=== PATIENT | female | born 1940 | race Hispanic/Latino ===

== ENCOUNTER → 2018-04-04 | Day surgery (SDC) | payer OTHER ==
[2018-04-01 12:04] LABS: BASOPHILS % 0.5 % (0.0-1.0); EOSINOPHILS # (AUTO) 0.1 (0.0-0.4); EOSINOPHILS % 1.8 % (0.0-6.0); HEMATOCRIT 32.3 % (34.2-44.1); HEMOGLOBIN 10.7 g/dL (12.0-16.0); LYMPHOCYTES # (AUTO) 1.9 (1.0-3.2); LYMPHOCYTES % 28.5 % (18.0-39.1); MEAN CORPUSCULAR HEMOGLOBIN 29.6 pg (28-32); MEAN CORPUSCULAR HGB CONC 33.1 g/dL (31-35); MEAN CORPUSCULAR VOLUME 89.5 fL (81-99); MONOCYTES # (AUTO) 0.5 (0.2-0.8); MONOCYTES % 6.9 % (4.4-11.3); NEUTROPHILS # (AUTO) 4.1 (2.1-6.9); PLATELET COUNT 177 x10e3/uL (140-360); RED BLOOD COUNT 3.61 x10e6/uL (3.6-5.1); RED CELL DISTRIBUTION WIDTH 13.3 % (11.7-14.4)
--- NOTE | 2018-04-01 12:33 | Diagnostic Imaging Report ---
EXAMINATION: PA and lateral views of the chest. COMPARISON: None CLINICAL HISTORY: Preoperative study for urological procedure DISCUSSION: Lungs are well-inflated. Right hemidiaphragmatic eventration. Biapical pleural-parenchymal scar right greater than left. Mild probable age-related prominence of the interstitial markings. No airspace consolidation, pleural effusion, or pneumothorax. Mild tortuosity of the thoracic aorta with otherwise normal heart size. No acute osseous abnormality. Surgical tati project over the anterior upper abdomen on the lateral radiograph. IMPRESSION: No acute cardiopulmonary abnormalities. Signed by: Dr. Chepe Alonso M.D. on 04/01/2018 12:30 PM
[~2018-04-04] MED LIST: CEFTRIAXONE SOD 1 GM VIAL ONE; DEXAMETHASONE SOD PHOS INJ 4 MG/ML VIAL ONE; FENTANYL CITRATE/PF 100MCG/2 ML INJ ONE; IOPAMIDOL 610MG/1ML 300 MG/ML VIAL IV ONE; LIDOCAINE HCL 2% LOCAL INJ 5 ML SDV VIAL INJ ONE; ONDANSETRON HCL INJ 2 MG/ML VIAL ONE; PROPOFOL IV EMULSION 10 MG/ML 20 ML VIAL ONE; SEVOFLURANE INHAL SOLN 250 ML PEN BTL ONE
--- OUTSIDE RECORDS SUMMARY | 2018-04-04 05:46 | XMS REPORT ---
Author Author [facility] Address Unknown Phone Unavailable Care Team Providers Care Atomic Physics Professor Name Role Phone IRMA MASON Unavailable Unavailable Problems This patient has no known problems. Allergies, Adverse Reactions, Alerts This patient has no known allergies or adverse reactions. Medications This patient has no known medications. Results Test Description Test Time Test Comments Text Results Atomic Results Result Comments CHEST 2 VIEWS 2018-04-01 12:27:00 [facility] [address], [place] [address] Patient Name: DOM DUTTON MR #: [id number] : 1940 Age/Sex: 77/F Req #: [id number] Adm Physician: Ordered by: IRMA MASNO MD Report #: [id number] Location: OR Room/Bed: Procedure: [id number] DX/CHEST 2 VIEWS Exam Date: 04/01/18 Exam Time: 1212 REPORT STATUS: Signed EXAMINATION: PA and lateral views of the chest. C OMPARISON: None CLINICAL HISTORY: Preoperative study for urological procedure DISCUSSION: Lungs are well-inflated. Right hemidiaphragmatic eventration. Biapical pleural-parenchymal scar right greater than left. Mild probable age-related prominence of the interstitial markings. No airspace consolidation, pleural effusion, or pneumothorax. Mild tortuosity of the thoracic aorta with otherwise normal heart size. No acute osseous abnormality. Surgical tati project over the anterior upper abdomen on the lateral radiograph. IMPRESSION: No acute cardiopulmonary abnormalities. Signed by: Dr. Deja Lu M.D. on 04/01/2018 12:30 PM Dictated By: DEJA LU MD 1230 Transcribed By: MARTHA on 04/01/18 1230 COPY TO: IRMA MASON MD
[2018-04-04 08:50] VITALS: BP 160/70
--- NOTE | 2018-04-06 02:11 | Operative Report ---
DATE OF PROCEDURE: April 04, 2018 PREOPERATIVE DIAGNOSES: 1. Multiple chronic urinary tract infections. 2. Clinical signs and symptoms of interstitial cystitis. POSTOPERATIVE DIAGNOSES: 1. Multiple chronic urinary tract infections. 2. Clinical signs and symptoms of interstitial cystitis. 3. Right ureteral stricture. PROCEDURES: 1. Cystourethroscopy with left ureteral catheterization and left retrograde pyelogram (entirely separate procedure for multiple chronic urinary tract infections). 2. Cystourethroscopy with hydrodistention (entirely separate procedure for clinical signs and symptoms of interstitial cystitis). 3. Right-sided ureteroscopy (entirely separate procedure for the diagnosis of right ureteral stricture). 4. Cystourethroscopy with insertion of a right indwelling ureteral stent (entirely separate procedure for diagnosis of right ureteral stricture). 5. Supervision of fluoroscopy. 6. Interpretation of retrograde pyelography. ANESTHESIA: General. ESTIMATED BLOOD LOSS: Minimal. COMPLICATIONS: None. DETAILS OF PROCEDURE: INDICATIONS FOR PROCEDURE: Ms. Camacho is a 77-year-old female with multiple chronic urinary tract infections. She and I had a long discussion about alternatives, risks, and benefits including doing nothing, cystoscopy, IVP, retrograde pyelogram, renal ultrasound. She voiced understanding of the options, the alternatives, the risks, and the benefits and she elected to proceed. PROCEDURE IN DETAIL: After informed consent was obtained, the patient was taken to the operative suite and she was placed supine on the operating table. She underwent general anesthesia by the anesthesia service. She was placed in the dorsal lithotomy position and sterilely prepped and draped in the standard fashion for cystoscopy. 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 A 21-Sudanese cystoscope was inserted per urethra. Normal urethra was noted. Panendoscopy of the bladder revealed no tumors, no stones. Both ureteral orifices were in their normal anatomical location and position were seen to efflux clear urine. A hydrodistention was performed which revealed a capacity of 800 mL. No glomerulations and no Hunner's ulcers. Bilateral retrograde pyelograms were performed. The left was normal. The right revealed distal narrowing. With extreme pressure, I could not get anything to advance past iliac vessels. At this time, a 5-Sudanese open-ended guidewire was inserted with a moderate degree of difficulty. Attempts were made to dilate the ureter. Ureteroscope was advanced to this level. Photographs again which were taken showing stricture. We managed to dilate this and placed a 6 x 24-Sudanese ureteral stent with a coil in the renal pelvis and a coil in the patient's bladder. Bladder was drained. The patient was awakened from anesthesia and transported to the recovery room in excellent condition. SUPERVISION OF FLUOROSCOPY AND INTERPRETATION OF RETROGRADE PYELOGRAPHY: I was present throughout the entire procedure and supervised fluoroscopy. There was no radiologist present at any time during this procedure. Attention was turned toward the left and right ureteral orifices, which were catheterized. A retrograde pyelogram was performed, the left was normal and the right revealed distal to mid ureteral stricture. Postoperative views revealed the right ureteral stent in adequate position. Job#: [id number] LUPE
== END | disposition home or self-care (01) ==
LOC: OR 05:43
PROVIDERS: ATTEND Urology
DX: N39.0 Urinary tract infection, site not specified (principal); N13.5 Crossing vessel and stricture of ureter without hydronephrosis; N81.3 Complete uterovaginal prolapse; I10 Essential (primary) hypertension; Z88.6 Allergy status to analgesic agent; Z01.810 Encounter for preprocedural cardiovascular examination; Z01.812 Encounter for preprocedural laboratory examination; Z01.818 Encounter for other preprocedural examination
CPT/HCPCS: 36415; 52332; 71046; 74420; 85025; 93005; C1874; J0696; J1100; J2001; J2405; J2704; Q9967

== ENCOUNTER → 2018-05-16 | Day surgery (SDC) | payer OTHER ==
[2018-05-14 13:29] LABS: BASOPHILS % 0.3 % (0.0-1.0); EOSINOPHILS # (AUTO) 0.2 (0.0-0.4); EOSINOPHILS % 2.2 % (0.0-6.0); HEMATOCRIT 31.8 % (34.2-44.1); HEMOGLOBIN 10.4 g/dL (12.0-16.0); LYMPHOCYTES # (AUTO) 2.3 (1.0-3.2); LYMPHOCYTES % 31.2 % (18.0-39.1); MEAN CORPUSCULAR HEMOGLOBIN 29.6 pg (28-32); MEAN CORPUSCULAR HGB CONC 32.7 g/dL (31-35); MEAN CORPUSCULAR VOLUME 90.6 fL (81-99); MONOCYTES # (AUTO) 0.6 (0.2-0.8); MONOCYTES % 7.7 % (4.4-11.3); NEUTROPHILS # (AUTO) 4.3 (2.1-6.9); NEUTROPHILS % 58.2 % (38.7-80.0); PLATELET COUNT 175 x10e3/uL (140-360); RED BLOOD COUNT 3.51 x10e6/uL (3.6-5.1)
[~2018-05-16] MED LIST changes: -CEFTRIAXONE SOD 1 GM VIAL ONE; +CEFTRIAXONE SOD 1 GM/NS 50 ML 50 ML IV ONE
--- NOTE | 2018-05-16 09:59 | Operative Report ---
DATE OF PROCEDURE: May 16, 2018 PREOPERATIVE DIAGNOSES 1. Indwelling right ureteral stent. 2. Right ureteral stricture. POSTOPERATIVE DIAGNOSES 1. Indwelling right ureteral stent. 2. Right ureteral stricture. PROCEDURES 1. Cystourethroscopy with removal of right indwelling stent (entirely separate procedure for ureteral stent complicated secondary to encrustation). 2. Right-sided ureteroscopy with dilation and evaluation of stricture (entirely separate procedure for ureteral stricture). 3. Supervision of fluoroscopy for the ureteroscopy portion. 4. Supervision of fluoroscopy for stent removal portion. 5. Interpretation of retrograde pyelography. ANESTHESIA: General. ESTIMATED BLOOD LOSS: Minimal. COMPLICATIONS: None. INDICATIONS: Ms. Camacho is a 77-year-old female who on routine cystoscopy and retrograde pyelogram was found to have a dense ureteral stricture, and now presents for evaluation. She voices the options, alternatives, risks, and benefits and elected to proceed. PROCEDURE IN DETAIL: After informed consent was obtained, the patient was preoperatively identified. Was placed in the dorsal lithotomy position and sterilely prepped and draped for cystoscopy. A 22.5-Tajik cystoscope was inserted revealing a normal urethra. Panendoscopy of the bladder revealed no tumors and no stones. Stent was encrusted and seen extruding from the right orifice. Guidewire was inserted. The stent was removed intact. It was noted to be encrusted. The ureteroscope was advanced to the level of the prior stricture. This area had been dilated. There was no abnormal appearing mucosa or area to biopsy. The ureteroscope was driven to the proximal ureter almost to the level of the kidneys. No other filling defects were seen on retrograde pyelogram with the scope. At this time, the scope and safety wire were removed. The bladder was drained. The patient was awakened from anesthesia and transported to the recovery room in excellent condition. SUPERVISION OF FLUOROSCOPY, INTERPRETATION OF RETROGRADE URETERAL PYELOGRAPHY: I was present throughout the entire procedure and I supervised the use of fluoroscopy, retrograde ureteroscopy and stent removal portions. There was no radiologist present. Attention was turned toward the right ureteral orifice where with the ureteroscope retrograde pyelogram was performed with the urethroscope revealing tortuosity. However, resolution of the prior stricture. Job#: [id number] DYANA
[2018-05-16 10:05] VITALS: BP 157/55
== END | disposition home or self-care (01) ==
LOC: OR 06:31
PROVIDERS: ATTEND Urology
DX: N13.5 Crossing vessel and stricture of ureter without hydronephrosis (principal); N20.0 Calculus of kidney; Z88.6 Allergy status to analgesic agent; Z46.6 Encounter for fitting and adjustment of urinary device; Z01.812 Encounter for preprocedural laboratory examination
CPT/HCPCS: 36415; 52351; 74420; 85025; J0696; J1100; J2001; J2405; J2704; Q9967

== ENCOUNTER 2020-11-05 13:38 | Inpatient (IN) | payer OTHER ==
[~2020-11-05] VITALS: Ht 165.1 cm; Wt 72.1 kg
[2020-11-05] MEDS ORDERED: SODIUM CHLORIDE 0.9% 1000ML 1,000 ML IV STA (13:58)
[2020-11-05 14:13] LABS: BASOPHILS % 0.1 % (0.0-1.0); EOSINOPHILS # (AUTO) 0.1 (0.0-0.4); EOSINOPHILS % 0.6 % (0.0-6.0); LYMPHOCYTES # (AUTO) 1.4 (1.0-3.2); LYMPHOCYTES % 15.3 % (18.0-39.1); MEAN CORPUSCULAR HEMOGLOBIN 25.2 pg (28-32); MEAN CORPUSCULAR HGB CONC 29.9 g/dL (31-35); MEAN CORPUSCULAR VOLUME 84.2 fL (81-99); MONOCYTES # (AUTO) 0.5 (0.2-0.8); MONOCYTES % 5.9 % (4.4-11.3); NEUTROPHILS # (AUTO) 6.9 (2.1-6.9); NEUTROPHILS % 77.4 % (38.7-80.0); PLATELET COUNT 230 x10e3/uL (140-360); RED BLOOD COUNT 2.22 x10e6/uL (3.6-5.1); RED CELL DISTRIBUTION WIDTH 14.6 % (11.7-14.4)
[2020-11-05 14:22] LABS: HEMATOCRIT 18.7 % (34.2-44.1); HEMOGLOBIN 5.6 g/dL (12.0-16.0)
[2020-11-05 14:35] LABS: CLARITY,URINE HAZY (CLEAR); COLOR,URINE YELLOW (YELLOW); LEUKOCYTE ESTERASE ,URINE SMALL (NEGATIVE); NITRITE,URINE POSITIVE (NEGATIVE)
[2020-11-05 14:36] LABS: KETONES,URINE NEGATIVE (NEGATIVE); PROTEIN,URINE DIPSTICK NEGATIVE (NEGATIVE); URINE UROBILINOGEN 0.2 mg/dL (0.2 - 1)
[2020-11-05 14:37] LABS: AMORPHOUS SEDIMENT,URINE FEW (FEW); BACTERIA,URINE MANY /HPF; EPITHELIAL CELLS,URINE FEW /LPF; MUCUS,URINE MODERATE (RARE); WBC,URINE (MAN) 21-50 /HPF (0-5)
[2020-11-05 14:47] LABS: ALANINE AMINOTRANSFERASE 6 IU/L (0-55); ALBUMIN 3.3 g/dL (3.5-5.0); ALBUMIN/GLOBULIN RATIO 0.9 (0.8-2.0); ALKALINE PHOSPHATASE 93 IU/L (40-150); ANION GAP 11.4 mmol/L (8-16); BLOOD UREA NITROGEN 32 mg/dL (7-26); BUN/CREATININE RATIO 19 (6-25); CALCIUM 8.2 mg/dL (8.4-10.2); CARBON DIOXIDE 20 mmol/L (22-29); CHLORIDE 113 mmol/L (98-107); CREATINE KINASE 91 IU/L (29-168); CREATININE, SERUM 1.69 mg/dL (0.57-1.11); EST GLOMERULAR FILTRATION RATE 29 ML/MIN (60-); GLUCOSE 130 mg/dL (74-118); MAGNESIUM 2.4 MG/DL (1.3-2.1); POTASSIUM 4.4 mmol/L (3.5-5.1); SODIUM 140 mmol/L (136-145)
[2020-11-05 16:06] LABS: ANISOCYTOSIS SLIGHT; HYPOCHROMASIA SLIGHT; PLATELET ESTIMATE ADEQUATE; PLATELET MORPHOLOGY COMMENT NORMAL
[2020-11-05] MEDS ORDERED: ONDANSETRON HCL INJ 2MG/ML 2ML 2 MG/ML VIAL IV PRN (16:30)
[2020-11-05] MEDS: PIPERACILLIN/TAZOBACTAM 2.25 GM in SODIUM CHLORIDE 0.9% 50ML 50 ML IV SCH (17:20)
[2020-11-05] MEDS: SODIUM CHLORIDE 0.9% 1000ML 1,000 ML IV SCH (17:20)
[2020-11-05 18:20] VITALS: BP 136/63
[2020-11-05 20:00] VITALS: BP 109/51
[2020-11-05 20:20] VITALS: BP 109/51
[2020-11-05 22:03] VITALS: BP 109/51
[2020-11-05] MEDS ORDERED: SODIUM CHLORIDE 0.9% 250ML 250 ML ONE (22:47)
[2020-11-05 22:57] LABS: CREATINE KINASE 83 IU/L (29-168)
[2020-11-06] VITALS (8 sets, daily range): BP systolic 117–145; BP diastolic 35–69
[2020-11-06] MEDS: PIPERACILLIN/TAZOBACTAM 2.25 GM in SODIUM CHLORIDE 0.9% 50ML 50 ML IV SCH ×5 (01:22→23:30)
[2020-11-06] MEDS: SODIUM CHLORIDE 0.9% 1000ML 1,000 ML IV SCH ×2 (02:30→10:17)
[2020-11-06] MEDS ORDERED: SODIUM CHLORIDE 0.9% 250ML 250 ML ONE (02:31)
[2020-11-06 06:22] LABS: BASOPHILS % 0.4 % (0.0-1.0); EOSINOPHILS # (AUTO) 0.1 (0.0-0.4); EOSINOPHILS % 0.8 % (0.0-6.0); HEMATOCRIT 26.8 % (34.2-44.1); HEMOGLOBIN 8.1 g/dL (12.0-16.0); LYMPHOCYTES # (AUTO) 2.1 (1.0-3.2); LYMPHOCYTES % 27.9 % (18.0-39.1); MEAN CORPUSCULAR HEMOGLOBIN 26.9 pg (28-32); MEAN CORPUSCULAR HGB CONC 30.2 g/dL (31-35); MONOCYTES # (AUTO) 0.5 (0.2-0.8); MONOCYTES % 6.3 % (4.4-11.3); NEUTROPHILS # (AUTO) 4.9 (2.1-6.9); NEUTROPHILS % 64.3 % (38.7-80.0); PLATELET COUNT 219 x10e3/uL (140-360); RED BLOOD COUNT 3.01 x10e6/uL (3.6-5.1); RED CELL DISTRIBUTION WIDTH 15.3 % (11.7-14.4)
[2020-11-06 06:43] LABS: ALBUMIN 3.1 g/dL (3.5-5.0); ALBUMIN/GLOBULIN RATIO 0.8 (0.8-2.0); ANION GAP 11.7 mmol/L (8-16); CALCIUM 8.1 mg/dL (8.4-10.2); CHOL/HDL RATIO 2.1 (3.0-3.6); CREATININE, SERUM 1.39 mg/dL (0.57-1.11); POTASSIUM 4.7 mmol/L (3.5-5.1)
[2020-11-06 06:59] LABS: CREATINE KINASE 110 IU/L (29-168)
[2020-11-06 11:13] LABS: THYROID STIMULATING HORMONE 3.732 uIU/mL (0.350-4.940)
[2020-11-06] MEDS: CEFTRIAXONE 1 GM in SODIUM CHLORIDE 0.9% 50ML 50 ML IV SCH (11:49)
[2020-11-06] MEDS ORDERED: LOSARTAN POTAS100 MG PO (13:40)
[2020-11-06] MEDS ORDERED: ASPIRIN81 MG PO (13:40)
[2020-11-06] MEDS ORDERED: ATORVASTATIN CA10 MG PO (13:40)
[2020-11-06] MEDS ORDERED: CYANOCOBALAMIN INJ 1,000 MCG/ML VIAL IM ONE (23:15)
[2020-11-06] MEDS ORDERED: BISACODYL 5 MG TAB EC PO ONE (23:30)
[2020-11-07] VITALS (8 sets, daily range): BP systolic 138–179; BP diastolic 55–74
[2020-11-07] MEDS: SODIUM CHLORIDE 0.9% 1000ML 1,000 ML IV SCH
[2020-11-07] MEDS: PIPERACILLIN/TAZOBACTAM 2.25 GM in SODIUM CHLORIDE 0.9% 50ML 50 ML IV SCH (04:48)
[2020-11-07 05:51] LABS: BASOPHILS % 0.4 % (0.0-1.0); EOSINOPHILS # (AUTO) 0.1 (0.0-0.4); HEMATOCRIT 24.4 % (34.2-44.1); HEMOGLOBIN 7.6 g/dL (12.0-16.0); LYMPHOCYTES # (AUTO) 1.6 (1.0-3.2); LYMPHOCYTES % 24.2 % (18.0-39.1); MEAN CORPUSCULAR HEMOGLOBIN 26.4 pg (28-32); MEAN CORPUSCULAR HGB CONC 31.1 g/dL (31-35); MONOCYTES # (AUTO) 0.5 (0.2-0.8); MONOCYTES % 7.5 % (4.4-11.3); NEUTROPHILS # (AUTO) 4.5 (2.1-6.9); NEUTROPHILS % 66.6 % (38.7-80.0); PLATELET COUNT 196 x10e3/uL (140-360); RED BLOOD COUNT 2.88 x10e6/uL (3.6-5.1); RED CELL DISTRIBUTION WIDTH 14.9 % (11.7-14.4)
[2020-11-07 05:55] LABS: MEAN CORPUSCULAR VOLUME 84.7 fL (81-99)
[2020-11-07 06:12] LABS: ALBUMIN/GLOBULIN RATIO 0.8 (0.8-2.0); ANION GAP 13.8 mmol/L (8-16); CREATININE, SERUM 1.34 mg/dL (0.57-1.11); POTASSIUM 3.8 mmol/L (3.5-5.1)
[2020-11-07] MEDS: CEFTRIAXONE 1 GM in SODIUM CHLORIDE 0.9% 50ML 50 ML IV SCH (09:09)
[2020-11-07] MEDS: CYANOCOBALAMIN INJ 1,000 MCG/ML VIAL IM SCH (09:09)
[2020-11-07] MEDS: IRON SUCROSE 100 MG in SODIUM CHLORIDE 0.9% 100 ML 100 ML IV SCH (09:52)
[2020-11-07] MEDS ORDERED: PEG (High)/E-LYTE SOLN 4,000 ML BTL PO ONE (12:00)
[2020-11-07] MEDS ORDERED: BISACODYL 5 MG TAB EC PO ONE ×3 (21:30→22:00)
[2020-11-08] VITALS (8 sets, daily range): BP systolic 129–174; BP diastolic 47–65
[2020-11-08 05:24] LABS: BASOPHILS % 0.5 % (0.0-1.0); EOSINOPHILS # (AUTO) 0.1 (0.0-0.4); EOSINOPHILS % 1.2 % (0.0-6.0); HEMATOCRIT 24.3 % (34.2-44.1); HEMOGLOBIN 7.6 g/dL (12.0-16.0); LYMPHOCYTES # (AUTO) 1.8 (1.0-3.2); LYMPHOCYTES % 29.9 % (18.0-39.1); MEAN CORPUSCULAR HEMOGLOBIN 26.6 pg (28-32); MEAN CORPUSCULAR HGB CONC 31.3 g/dL (31-35); MONOCYTES # (AUTO) 0.5 (0.2-0.8); MONOCYTES % 7.6 % (4.4-11.3); NEUTROPHILS # (AUTO) 3.6 (2.1-6.9); NEUTROPHILS % 60.3 % (38.7-80.0); PLATELET COUNT 189 x10e3/uL (140-360); RED BLOOD COUNT 2.86 x10e6/uL (3.6-5.1); RED CELL DISTRIBUTION WIDTH 14.6 % (11.7-14.4)
[2020-11-08 06:00] LABS: ANION GAP 13.6 mmol/L (8-16); CALCIUM 8.5 mg/dL (8.4-10.2); CREATININE, SERUM 1.18 mg/dL (0.57-1.11); POTASSIUM 3.6 mmol/L (3.5-5.1)
[2020-11-08] MEDS: CEFTRIAXONE 1 GM in SODIUM CHLORIDE 0.9% 50ML 50 ML IV SCH (08:51)
[2020-11-08] MEDS: CYANOCOBALAMIN INJ 1,000 MCG/ML VIAL IM SCH (08:51)
[2020-11-08] MEDS: IRON SUCROSE 100 MG in SODIUM CHLORIDE 0.9% 100 ML 100 ML IV SCH (09:00)
[2020-11-08] MEDS ORDERED: FENTANYL CITRATE/PF 100MCG/2 ML INJ ONE (16:23)
[2020-11-08] MEDS ORDERED: CITRATE OF MAGNESIA 300ML BOTTLE PO ONE (22:00)
[2020-11-09] VITALS (7 sets, daily range): BP systolic 112–152; BP diastolic 41–84
[2020-11-09] MEDS ORDERED: CITRATE OF MAGNESIA 300ML BOTTLE PO ONE ×2 (04:38→05:00)
[2020-11-09] MEDS: CEFTRIAXONE 1 GM in SODIUM CHLORIDE 0.9% 50ML 50 ML IV SCH (09:05)
[2020-11-09] MEDS: CYANOCOBALAMIN INJ 1,000 MCG/ML VIAL IM SCH (09:05)
[2020-11-09] MEDS: IRON SUCROSE 100 MG in SODIUM CHLORIDE 0.9% 100 ML 100 ML IV SCH (09:45)
[2020-11-09] MEDS ORDERED: HYOSCYAMINE SULFATE 0.5 MG/ML INJ ONE (13:30)
[2020-11-09] MEDS ORDERED: GLUCAGON FOR INJ 1 MG VIAL ONE (13:30)
[2020-11-09] MEDS ORDERED: LIDOCAINE HCL 2% LOCAL INJ 5 ML SDV VIAL INJ ONE (13:30)
[2020-11-09] MEDS ORDERED: PROPOFOL IV EMULSION 10 MG/ML 20 ML VIAL ONE (13:30)
[2020-11-09] MEDS ORDERED: MIDAZOLAM HCL 2 MG/2 ML VIAL ONE (13:43)
[2020-11-09] MEDS ORDERED: FENTANYL CITRATE/PF 100MCG/2 ML INJ ONE (13:43)
[2020-11-10 00:29] VITALS: BP 105/30
[2020-11-10 05:03] VITALS: BP 112/50
[2020-11-10 08:00] VITALS: BP 132/48
[2020-11-10] MEDS: CYANOCOBALAMIN INJ 1,000 MCG/ML VIAL IM SCH (09:00)
[2020-11-10] MEDS: CEFTRIAXONE 1 GM in SODIUM CHLORIDE 0.9% 50ML 50 ML IV SCH (09:01)
[2020-11-10] MEDS: IRON SUCROSE 100 MG in SODIUM CHLORIDE 0.9% 100 ML 100 ML IV SCH (09:02)
[2020-11-10 10:56] LABS: BASOPHILS % 0.3 % (0.0-1.0); EOSINOPHILS # (AUTO) 0.1 (0.0-0.4); EOSINOPHILS % 1.3 % (0.0-6.0); HEMOGLOBIN 7.7 g/dL (12.0-16.0); LYMPHOCYTES # (AUTO) 1.5 (1.0-3.2); LYMPHOCYTES % 24.2 % (18.0-39.1); MEAN CORPUSCULAR HEMOGLOBIN 26.3 pg (28-32); MEAN CORPUSCULAR HGB CONC 30.8 g/dL (31-35); MEAN CORPUSCULAR VOLUME 85.3 fL (81-99); MONOCYTES # (AUTO) 0.5 (0.2-0.8); NEUTROPHILS # (AUTO) 3.9 (2.1-6.9); NEUTROPHILS % 64.9 % (38.7-80.0); PLATELET COUNT 189 x10e3/uL (140-360); RED BLOOD COUNT 2.93 x10e6/uL (3.6-5.1); RED CELL DISTRIBUTION WIDTH 15.4 % (11.7-14.4)
[2020-11-10 12:00] VITALS: BP 152/56
[2020-11-10] MEDS ORDERED: HEMOCYTE PLUS1 EACH PO (12:39)
[2020-11-10] MEDS ORDERED: CARAFATE1 GM/10 ML PO (12:40)
[2020-11-10] MEDS ORDERED: PANTOPRAZOLE SO40 MG PO (12:40)
[2020-11-10] MEDS ORDERED: KEFLEX750 MG PO (12:41)
[2020-11-10] MEDS ORDERED: COLACE100 MG PO (12:41)
[2020-11-10] MEDS ORDERED: ONDANSETRON HCL 4 MG ORAL DISINTEGRATING TAB PO PRN (13:00)
== END 2020-11-10 13:14 | disposition home or self-care (01) | DRG 377 ==
LOC: ER 13:50 → ERHOLD 16:44 → MED/SURG3 18:08
PROVIDERS: ADMIT Internal Medicine; ATTEND Internal Medicine
PROC: 30233N1 Transfusion of Nonautologous Red Blood Cells into Peripheral Vein, Percutaneous Approach (ICD-10-PCS; principal; 2020-11-05)
PROC: 0D5H8ZZ Destruction of Cecum, Via Natural or Artificial Opening Endoscopic (ICD-10-PCS; 2020-11-09)
PROC: 0DB98ZX Excision of Duodenum, Via Natural or Artificial Opening Endoscopic, Diagnostic (ICD-10-PCS; 2020-11-09 12:00)
PROC: 0DB68ZX Excision of Stomach, Via Natural or Artificial Opening Endoscopic, Diagnostic (ICD-10-PCS; 2020-11-09 12:00)
PROC: 0DBH8ZX Excision of Cecum, Via Natural or Artificial Opening Endoscopic, Diagnostic (ICD-10-PCS; 2020-11-09 12:00)
PROC: 0DBN8ZX Excision of Sigmoid Colon, Via Natural or Artificial Opening Endoscopic, Diagnostic (ICD-10-PCS; 2020-11-09 12:00)
DX: K55.21 Angiodysplasia of colon with hemorrhage (principal); K20.91 Esophagitis, unspecified with bleeding; N39.0 Urinary tract infection, site not specified; D64.9 Anemia, unspecified; R55 Syncope and collapse; N28.9 Disorder of kidney and ureter, unspecified; K44.9 Diaphragmatic hernia without obstruction or gangrene; K63.5 Polyp of colon; D50.9 Iron deficiency anemia, unspecified; D51.9 Vitamin B12 deficiency anemia, unspecified; I10 Essential (primary) hypertension; E78.5 Hyperlipidemia, unspecified; Z88.5 Allergy status to narcotic agent; Z88.8 Allergy status to other drugs, medicaments and biological substances; K29.71 Gastritis, unspecified, with bleeding
CPT/HCPCS: 36415; 43239; 45378; 45380; 45385; 45388; 70450; 71045; 72125; 80048; 80053; 80061; 81001; 82270; 82550; 82553; 82607; 82746; 82948; 83540; 83735; 83880; 84443; 84466; 84484; 85025; 86850; 86900; 86920; 87086; 87186; 88305; 88312; 88331; 93005; 96361; 99284; J0696; J1610; J1756; J1980; J2001; J2250; J2543; J3010; J3420; J7030; J7050; P9016

== ENCOUNTER 2022-10-18 11:17 | Inpatient (IN) | payer MEDICARE, OTHER ==
[~2022-10-18] VITALS: Ht 165.1 cm; Wt 72.1 kg
[2022-10-18] VITALS (7 sets, daily range): BP systolic 122–188; BP diastolic 42–77; PULSE 69–92; RESP 17–19; TEMP 97–98.4; O2SAT 95–100
[~2022-10-18 11:17] MED LIST changes: +ASPIRIN81 MG PO; +ATORVASTATIN CA10 MG PO; +CARAFATE1 GM/10 ML PO; -CEFTRIAXONE SOD 1 GM/NS 50 ML 50 ML IV ONE; +COLACE100 MG PO; -DEXAMETHASONE SOD PHOS INJ 4 MG/ML VIAL ONE; -FENTANYL CITRATE/PF 100MCG/2 ML INJ ONE; +HEMOCYTE PLUS1 EACH PO; -IOPAMIDOL 610MG/1ML 300 MG/ML VIAL IV ONE; +KEFLEX750 MG PO; -LIDOCAINE HCL 2% LOCAL INJ 5 ML SDV VIAL INJ ONE; +LOSARTAN POTAS100 MG PO; -ONDANSETRON HCL INJ 2 MG/ML VIAL ONE; +PANTOPRAZOLE SO40 MG PO; -PROPOFOL IV EMULSION 10 MG/ML 20 ML VIAL ONE; -SEVOFLURANE INHAL SOLN 250 ML PEN BTL ONE
[2022-10-18 12:07] LABS: BASOPHILS % 0.2 % (0.0-1.0); EOSINOPHILS # (AUTO) 0.1 (0.0-0.4); EOSINOPHILS % 1.6 % (0.0-6.0); HEMATOCRIT 23.4 % (34.2-44.1); LYMPHOCYTES # (AUTO) 1.1 (1.0-3.2); LYMPHOCYTES % 25.5 % (18.0-39.1); MEAN CORPUSCULAR HEMOGLOBIN 24.4 pg (28-32); MEAN CORPUSCULAR HGB CONC 29.9 g/dL (31-35); MEAN CORPUSCULAR VOLUME 81.5 fL (81-99); MONOCYTES # (AUTO) 0.4 (0.2-0.8); MONOCYTES % 8.1 % (4.4-11.3); NEUTROPHILS # (AUTO) 2.9 (2.1-6.9); NEUTROPHILS % 64.4 % (38.7-80.0); PLATELET COUNT 211 x10e3/uL (140-360); RED BLOOD COUNT 2.87 x10e6/uL (3.6-5.1); RED CELL DISTRIBUTION WIDTH 18.6 % (11.7-14.4)
[2022-10-18 12:22] LABS: INR 1.07; PARTIAL THROMBOPLASTIN TIME 26.9 seconds (23.8-35.5); PROTHROMBIN TIME 14.4 seconds (11.9-14.5)
[2022-10-18] MEDS ORDERED: SODIUM CHLORIDE 0.9% 250ML 250 ML IV ONE (12:45)
[2022-10-18 12:51] LABS: ALBUMIN 3.5 g/dL (3.5-5.0); ANION GAP 12.2 mmol/L (8-16); CALCIUM 8.4 mg/dL (8.4-10.2); CREATININE, SERUM 1.68 mg/dL (0.57-1.11); POTASSIUM 4.2 mmol/L (3.5-5.1)
[2022-10-18] MEDS: SODIUM CHLORIDE 0.9% 1000ML 1,000 ML IV SCH (15:05)
[2022-10-18] MEDS ORDERED: FOLIC ACID0.4 MG PO (16:39)
[2022-10-18] MEDS ORDERED: OMEPRAZOLE40 MG PO (16:39)
[2022-10-18] MEDS: HYDRALAZINE HCL 20 MG/ML VIAL IV PRN ×2 (17:41→19:53)
[2022-10-18] MEDS: ATORVASTATIN 10 MG TAB PO SCH (19:40)
[2022-10-18] MEDS ORDERED: SODIUM CHLORIDE 0.9% 250ML 250 ML ONE (22:10)
[2022-10-19] MEDS: SODIUM CHLORIDE 0.9% 1000ML 1,000 ML IV SCH ×2 (02:05→03:32)
[2022-10-19 04:00] VITALS: BP 138/68; PULSE 80; RESP 18; TEMP 98.1; O2SAT 100
[2022-10-19 05:40] LABS: BASOPHILS % 0.4 % (0.0-1.0); EOSINOPHILS # (AUTO) 0.1 (0.0-0.4); EOSINOPHILS % 1.6 % (0.0-6.0); HEMATOCRIT 31.5 % (34.2-44.1); HEMOGLOBIN 9.7 g/dL (12.0-16.0); LYMPHOCYTES # (AUTO) 1.1 (1.0-3.2); LYMPHOCYTES % 21.9 % (18.0-39.1); MEAN CORPUSCULAR HEMOGLOBIN 25.4 pg (28-32); MEAN CORPUSCULAR HGB CONC 30.8 g/dL (31-35); MEAN CORPUSCULAR VOLUME 82.5 fL (81-99); MONOCYTES # (AUTO) 0.5 (0.2-0.8); MONOCYTES % 8.9 % (4.4-11.3); NEUTROPHILS # (AUTO) 3.4 (2.1-6.9); NEUTROPHILS % 66.8 % (38.7-80.0); PLATELET COUNT 177 x10e3/uL (140-360); RED BLOOD COUNT 3.82 x10e6/uL (3.6-5.1); RED CELL DISTRIBUTION WIDTH 17.7 % (11.7-14.4)
[2022-10-19 06:21] LABS: ALBUMIN 3.2 g/dL (3.5-5.0); CALCIUM 8.2 mg/dL (8.4-10.2); CREATININE, SERUM 1.31 mg/dL (0.57-1.11)
[2022-10-19 07:59] VITALS: BP 179/62; PULSE 66; RESP 17; TEMP 98.5; O2SAT 98
[2022-10-19 08:54] VITALS: BP 179/62; PULSE 66; RESP 17; TEMP 98.5; O2SAT 98
[2022-10-19] MEDS ORDERED: PANTOPRAZOLE SOD 40 MG TABEC PO SCH (09:00)
[2022-10-19] MEDS ORDERED: FOLIC ACID 0.4 MG PO SCH (09:00)
[2022-10-19] MEDS ORDERED: ASPIRIN 81 MG CHEW TAB PO SCH (09:00)
[2022-10-19] MEDS ORDERED: LOSARTAN POTASSIUM 100 MG TAB PO SCH (09:00)
[2022-10-19] MEDS ORDERED: HYDRALAZINE HCL 20 MG/ML VIAL IV PRN (09:45)
[2022-10-19] MEDS ORDERED: AMLODIPINE BESYLATE 10 MG TAB PO ONE (10:30)
[2022-10-19] MEDS ORDERED: IOPAMIDOL 370 MG/ML 100 ML INFUS..BTL INJ ONE (10:32)
[2022-10-19 11:05] LABS: THYROID STIMULATING HORMONE 1.85 uIU/mL (0.350-4.940)
[2022-10-19] MEDS: SODIUM BICARBONATE 8.4% 50 ML in SODIUM CHLORIDE 0.45% 1,000 ML IV SCH ×2 (11:16→20:41)
[2022-10-19] MEDS: IRON SUCROSE 100 MG in SODIUM CHLORIDE 0.9% 100 ML IV SCH (11:16)
[2022-10-19 15:43] VITALS: BP 135/56; PULSE 59; RESP 18; TEMP 98.2; O2SAT 98
[2022-10-19 20:23] VITALS: BP 136/61; PULSE 70; RESP 17; TEMP 98.2; O2SAT 96
[2022-10-19] MEDS: ATORVASTATIN 10 MG TAB PO SCH (20:35)
[2022-10-19] MEDS ORDERED: CYANOCOBALAMIN INJ 1,000 MCG/ML VIAL IM ONE (22:45)
[2022-10-19 23:29] VITALS: BP 136/61; PULSE 70; RESP 17; TEMP 98.2; O2SAT 96
[2022-10-20] VITALS (7 sets, daily range): BP systolic 104–161; BP diastolic 51–60; PULSE 62–76; RESP 18–20; TEMP 97.8–98.7; O2SAT 97–100
[2022-10-20 07:23] LABS: BASOPHILS % 0.4 % (0.0-1.0); EOSINOPHILS # (AUTO) 0.1 (0.0-0.4); EOSINOPHILS % 2.3 % (0.0-6.0); HEMATOCRIT 32.5 % (34.2-44.1); HEMOGLOBIN 10.2 g/dL (12.0-16.0); LYMPHOCYTES # (AUTO) 1.2 (1.0-3.2); LYMPHOCYTES % 25.4 % (18.0-39.1); MEAN CORPUSCULAR HEMOGLOBIN 25.2 pg (28-32); MEAN CORPUSCULAR HGB CONC 31.4 g/dL (31-35); MEAN CORPUSCULAR VOLUME 80.2 fL (81-99); MONOCYTES # (AUTO) 0.5 (0.2-0.8); MONOCYTES % 9.5 % (4.4-11.3); NEUTROPHILS % 62.2 % (38.7-80.0); PLATELET COUNT 179 x10e3/uL (140-360); RED BLOOD COUNT 4.05 x10e6/uL (3.6-5.1)
[2022-10-20 07:40] LABS: ANION GAP 12.3 mmol/L (8-16); CALCIUM 8.4 mg/dL (8.4-10.2); CREATININE, SERUM 1.38 mg/dL (0.57-1.11); POTASSIUM 4.3 mmol/L (3.5-5.1)
[2022-10-20] MEDS: SODIUM BICARBONATE 8.4% 50 ML in SODIUM CHLORIDE 0.45% 1,000 ML IV SCH ×2 (08:41→20:33)
[2022-10-20] MEDS: ACETAMINOPHEN 325 MG TAB PO SCH (09:00)
[2022-10-20] MEDS ORDERED: CYANOCOBALAMIN INJ 1,000 MCG/ML VIAL IM SCH ×2 (09:00→22:00)
[2022-10-20] MEDS: AMLODIPINE BESYLATE 10 MG TAB PO SCH (09:00)
[2022-10-20] MEDS: IRON SUCROSE 100 MG in SODIUM CHLORIDE 0.9% 100 ML IV SCH (12:04)
[2022-10-20] MEDS: ATORVASTATIN 10 MG TAB PO SCH (20:33)
[2022-10-21 00:05] VITALS: BP 149/62; PULSE 71; RESP 18; TEMP 98.6; O2SAT 100
[2022-10-21] MEDS: SODIUM BICARBONATE 8.4% 50 ML in SODIUM CHLORIDE 0.45% 1,000 ML IV SCH (05:00)
[2022-10-21 05:57] VITALS: BP 146/72; PULSE 80; RESP 21; TEMP 98.4; O2SAT 99
[2022-10-21 07:47] LABS: BASOPHILS % 0.3 % (0.0-1.0); EOSINOPHILS # (AUTO) 0.1 (0.0-0.4); EOSINOPHILS % 1.1 % (0.0-6.0); HEMATOCRIT 30.5 % (34.2-44.1); HEMOGLOBIN 9.4 g/dL (12.0-16.0); LYMPHOCYTES % 16.7 % (18.0-39.1); MEAN CORPUSCULAR HEMOGLOBIN 25.5 pg (28-32); MEAN CORPUSCULAR HGB CONC 30.8 g/dL (31-35); MEAN CORPUSCULAR VOLUME 82.7 fL (81-99); MONOCYTES # (AUTO) 0.6 (0.2-0.8); MONOCYTES % 9.3 % (4.4-11.3); NEUTROPHILS # (AUTO) 4.5 (2.1-6.9); NEUTROPHILS % 72.1 % (38.7-80.0); PLATELET COUNT 164 x10e3/uL (140-360); RED BLOOD COUNT 3.69 x10e6/uL (3.6-5.1); RED CELL DISTRIBUTION WIDTH 17.7 % (11.7-14.4)
[2022-10-21 07:55] VITALS: BP 152/57; PULSE 81; RESP 16; TEMP 98.6; O2SAT 99
[2022-10-21 08:05] VITALS: BP 152/57; PULSE 81; RESP 16; TEMP 98.6; O2SAT 99
[2022-10-21 08:08] LABS: ANION GAP 11.8 mmol/L (8-16); CALCIUM 8.1 mg/dL (8.4-10.2); CREATININE, SERUM 1.42 mg/dL (0.57-1.11); POTASSIUM 3.8 mmol/L (3.5-5.1)
[2022-10-21] MEDS: AMLODIPINE BESYLATE 10 MG TAB PO SCH (08:20)
[2022-10-21] MEDS: ACETAMINOPHEN 325 MG TAB PO SCH (08:21)
[2022-10-21] MEDS: IRON SUCROSE 100 MG in SODIUM CHLORIDE 0.9% 100 ML IV SCH (10:04)
[2022-10-21 12:20] VITALS: BP 165/58; PULSE 67; RESP 17; TEMP 98.2; O2SAT 99
[2022-10-21] MEDS ORDERED: PANTOPRAZOLE SO40 MG PO (17:06)
[2022-10-21 17:31] VITALS: BP 147/64; PULSE 75; RESP 16; TEMP 98.8; O2SAT 98
== END 2022-10-21 17:30 | disposition home or self-care (01) | DRG 812 ==
LOC: ER 11:30 → ERHOLD 12:36 → MED/SURG3 14:40 → OBSVTOIN 10-19 09:40
PROVIDERS: ADMIT Internal Medicine; ATTEND Internal Medicine
PROC: 30233N1 Transfusion of Nonautologous Red Blood Cells into Peripheral Vein, Percutaneous Approach (ICD-10-PCS; 2022-10-18)
PROC: 0DB68ZX Excision of Stomach, Via Natural or Artificial Opening Endoscopic, Diagnostic (ICD-10-PCS; 2022-10-20)
PROC: 0DB18ZX Excision of Upper Esophagus, Via Natural or Artificial Opening Endoscopic, Diagnostic (ICD-10-PCS; principal; 2022-10-20 14:59)
DX: D50.0 Iron deficiency anemia secondary to blood loss (chronic) (principal); Q27.39 Arteriovenous malformation, other site; E78.5 Hyperlipidemia, unspecified; K57.90 Diverticulosis of intestine, part unspecified, without perforation or abscess without bleeding; K21.9 Gastro-esophageal reflux disease without esophagitis; D13.0 Benign neoplasm of esophagus; I12.9 Hypertensive chronic kidney disease with stage 1 through stage 4 chronic kidney disease, or unspecified chronic kidney disease; N18.9 Chronic kidney disease, unspecified; K44.9 Diaphragmatic hernia without obstruction or gangrene; K29.70 Gastritis, unspecified, without bleeding; Z20.822 Contact with and (suspected) exposure to COVID-19; Z59.6 Low income
CPT/HCPCS: 0223U; 36415; 43235; 74177; 80048; 80053; 82270; 82607; 82728; 82746; 83540; 83735; 84443; 84466; 85025; 85610; 85730; 86850; 86900; 86920; 88305; 88342; 99284; G0378; J1756; J3420; J7030; J7050; P9016; Q9967